=== PATIENT | male | born 1960 | race Caucasian/White ===

== ENCOUNTER 2017-06-03 15:22 | Emergency (ER) | payer OTHER ==
[~2017-06-03] VITALS: Ht 193 cm; Wt 112.7 kg
[~2017-06-03 15:22] MED LIST: DSSL PO; ESOM20CA31 PO; FERR-89 PO; FOLI1 PO; HYDR-3965 PO; MULT1CAP32 PO; SPIR50 PO; THIA100 PO
[2017-06-03 16:46] LABS: EOSINOPHILS % (AUTO) 11.2 % (1.0-6.0); HEMATOCRIT 35.6 % (41-53); HEMOGLOBIN 12.4 g/dL (13.5-17.5); LYMPHOCYTES # (AUTO) 1.8 K/uL (1.0-4.8); LYMPHOCYTES % (AUTO) 37.4 % (22.0-44.0); MEAN CORPUSCULAR HEMOGLOBIN 32.8 pg (26.0-34.0); MEAN CORPUSCULAR HGB CONC 34.9 G/dL (31.0-37.0); MEAN CORPUSCULAR VOLUME 94 fL (80-100); MONOCYTES # (AUTO) 0.3 K/uL (0.1-1.0); MONOCYTES % (AUTO) 6.5 % (2.0-9.0); NEUTROPHILS # (AUTO) 2.1 K/uL (1.8-7.7); NEUTROPHILS % (AUTO) 43.9 % (40.0-70.0); PLATELET COUNT (AUTO) 116 K/uL (150-450); RED BLOOD CELL COUNT(AUTO) 3.79 MIL/uL (4.50-5.90); WHITE BLOOD COUNT (AUTO) 4.9 K/uL (4.5-11.0)
[2017-06-03 17:24] LABS: AMMONIA 46 umol/L (11-32)
[2017-06-03 17:28] LABS: TROPONIN I < 0.02 ng/mL (0.00-0.05)
[2017-06-03 17:29] LABS: B-TYPE NATRIURETIC PEPTIDE 19 pg/mL (0-100)
[2017-06-03 17:38] LABS: ANION GAP 8 mmol/L (8-16); CALCIUM, TOTAL 8.9 mg/dL (8.8-10.5); CARBON DIOXIDE 27 mmol/L (22-29); CHLORIDE 104 mmol/L (98-107); CREATININE 0.76 mg/dL (0.60-1.30); GLOMERULAR FILTR. RATE CALC > 60 mL/min (>60); POTASSIUM 3.9 mmol/L (3.5-5.1); SODIUM SERUM 139 mmol/L (136-145); UREA NITROGEN, BLOOD 9 mg/dL (7-18)
[2017-06-03 17:41] LABS: ALANINE AMINOTRANSFERASE 31 U/L (12-78); ALBUMIN 3.5 g/dL (3.4-5.0); ASPARTATE AMINOTRANSFERASE 19 U/L (15-37); BILIRUBIN,TOTAL 0.5 mg/dL (0.1-1.0); TOTAL PROTEIN, SERUM 6.7 g/dL (6.4-8.2)
[2017-06-03 20:29] VITALS: BP 129/72
== END 2017-06-03 20:50 | disposition home or self-care (01) ==
LOC: EMS 15:29
DX: G89.4 Chronic pain syndrome (principal); M54.2 Cervicalgia; F10.988 Alcohol use, unspecified with other alcohol-induced disorder; K70.30 Alcoholic cirrhosis of liver without ascites; E78.00 Pure hypercholesterolemia, unspecified; I10 Essential (primary) hypertension; E03.9 Hypothyroidism, unspecified; E11.9 Type 2 diabetes mellitus without complications; G51.0 Bell's palsy; G62.9 Polyneuropathy, unspecified; F17.210 Nicotine dependence, cigarettes, uncomplicated; Z88.0 Allergy status to penicillin
CPT/HCPCS: 36415; 80053; 82140; 83880; 84484; 85025; 93005; 99285; 99406; G0480